=== PATIENT | male | born 1965 | race Caucasian/White ===

== ENCOUNTER 2017-07-01 09:47 | Emergency (ER) | payer OTHER ==
--- NOTE | 2017-07-01 10:05 | CPEKG ---
Heart Rate: 63 RR Interval: 952 P-R Interval: 172 QRSD Interval: 98 QT Interval: 432 QTC Interval: 443 P [place]: 47 QRS [place]: 23 T Wave [place]: 13 EKG Severity - ABNORMAL ECG - EKG Impression: SINUS RHYTHM EKG Impression: MULTIPLE ATRIAL PREMATURE COMPLEXES EKG Impression: ST ELEV, PROBABLE NORMAL EARLY REPOL PATTERN Electronically Signed By: Ira Palma 01-Jul-2017 14:52:35
[2017-07-01] MEDS ORDERED: ASPIRIN 325 MG TAB PO ONE (10:17)
[2017-07-01 10:25] LABS: PLATELET COUNT 226 10^3/uL (150-400)
--- NOTE | 2017-07-01 10:34 | EDPHY ---
H & P Time Seen by Provider: 07/01/17 10:11 HPI/ROS: CHIEF COMPLAINT: Chest pain HISTORY OF PRESENT ILLNESS: 52-year-old male presents with chest pain. Onset of chest pain 3 days ago while he was standing in the kitchen. The chest pain is described as a pressure sensation, rated 2-3/10. The pressure sensation was persistent until yesterday, and was slightly alleviated with burping. The pain did not change with exertion. He did his usual activities over the weekend. This morning, he awoke in the pressure sensation was gone. However he has a left-sided chest pain, that comes and goes and is quite mild. He had a heart scan a couple of years ago and had a positive calcium scoring. He takes Crestor for hyperlipidemia. Family history of heart disease in 50's. REVIEW OF SYSTEMS: Constitutional: No fever, no chills Eyes: No visual changes ENT: No sore throat Respiratory: No cough, no shortness of breath Gastrointestinal: No nausea, no vomiting, no abdominal pain Genitourinary: no dysuria Musculoskeletal: No leg pain or swelling Skin: No rash Neurological: No headache, no weakness Psychiatric: No depression Past Medical/Surgical History: Hyperlipidemia Social History: No recent alcohol Smoking Status: Never smoked Physical Exam: General Appearance: Alert, pleasant Eyes: Pupils equal and round, no conjunctival pallor or injection ENT, Mouth: Mucous membranes moist Neck: Normal inspection Respiratory: Lungs are clear to auscultation Cardiovascular: Regular rate and rhythm Gastrointestinal: Abdomen is soft and nontender Neurological: A&O, nonfocal, normal gait Skin: Warm and dry, no rash Extremities: Nontender, no pedal edema Psychiatric: Mood and affect normal Constitutional: Initial Vital Signs Temperature (C) 36.6 C 07/01/17 09:49 Heart Rate 73 07/01/17 09:49 Respiratory Rate 18 07/01/17 09:49 Blood Pressure 133/71 H 07/01/17 09:49 O2 Sat (%) 99 07/01/17 09:49 O2 Delivery Mode Room Air O2 (L/minute) 2 Allergies/Adverse Reactions: No Known Allergies Allergy (Unverified 07/01/17 09:48) Home Medications: Medication Instructions Recorded Aspirin 81mg (*) 07/01/17 Crestor 07/01/17 Medical Decision Making - Diagnostics EKG Interpretation: EKG interpreted by me reveals normal sinus rhythm, rate 63, PACs, prominent T- waves in V2 and V3. No old EKG for comparison. Imaging Results: Imaging Impressions Chest X-Ray 07/01/17 10:17 Impression: Nothing acute radiographically. ED Course/Re-evaluation: This patient presents with atypical and prolonged chest pain (72 hrs of persistent cp). After careful consideration and evaluation, I find no evidence of acute coronary syndrome. The patient has risk factors for coronary disease, an unremarkable EKG and normal troponin. He will certainly need to follow up with Cardiology, but I feel that he is safe to do this promptly as an outpatient. He will call this afternoon to make an appointment. I feel that I can safely exclude pulmonary embolism, with normal vital signs, normal oxygen saturation and no risk factors for pulmonary embolism. In addition there is no evidence of pneumothorax, pneumonia, aortic dissection. I have encouraged him to return for recurrent chest pain or any concerns. Differential Diagnosis: Differential diagnosis includes though it is not limited to pneumonia, pneumothorax, pulmonary embolism, aortic dissection, pericarditis, acute coronary syndrome. - Data Points Laboratory Results: Laboratory Results 07/01/17 10:13 07/01/17 10:13 07/01/17 07/01/17 10:13 10:13 WBC 6.02 10^3/uL 10^3/uL (3.80-9.50) RBC 4.96 10^6/uL 10^6/uL (4.40-6.38) Hgb 16.5 g/dL g/dL (13.7-17.5) Hct 46.6 % % (40.0-51.0) MCV 94.0 fL fL (81.5-99.8) MCH 33.3 pg pg (27.9-34.1) MCHC 35.4 g/dL g/dL (32.4-36.7) RDW 11.9 % % (11.5-15.2) Plt Count 226 10^3/uL 10^3/uL (150-400) MPV 10.1 fL fL (8.7-11.7) Neut % (Auto) 65.1 % % (39.3-74.2) Lymph % (Auto) 26.2 % % (15.0-45.0) [place] % (Auto) 5.8 % % (4.5-13.0) Eos % (Auto) 1.8 % % (0.6-7.6) Baso % (Auto) 0.8 % % (0.3-1.7) Nucleat RBC Rel Count 0.0 % % (0.0-0.2) Absolute Neuts (auto) 3.91 10^3/uL 10^3/uL (1.70-6.50) Absolute Lymphs (auto) 1.58 10^3/uL 10^3/uL (1.00-3.00) Absolute Monos (auto) 0.35 10^3/uL 10^3/uL (0.30-0.80) Absolute Eos (auto) 0.11 10^3/uL 10^3/uL (0.03-0.40) Absolute Basos (auto) 0.05 10^3/uL 10^3/uL (0.02-0.10) Absolute Nucleated RBC 0.00 10^3/uL 10^3/uL (0-0.01) Immature Gran % 0.3 % % (0.0-1.1) Immature Gran # 0.02 10^3/uL 10^3/uL (0.00-0.10) Sodium 145 mEq/L H mEq/L (134-144) Potassium 4.4 mEq/L mEq/L (3.5-5.2) Chloride 101 mEq/L mEq/L (97-110) Carbon Dioxide 30 mEq/l mEq/l (22-31) Anion Gap 14 mEq/L mEq/L (8-16) BUN 23 mg/dL mg/dL (7-23) Creatinine 0.9 mg/dL mg/dL (0.7-1.3) Estimated GFR > 60 Glucose 72 mg/dL mg/dL (70-100) Calcium 10.1 mg/dL mg/dL (8.5-10.4) Troponin I < 0.012 ng/mL ng/mL (0.000-0.034) Medications Given: Discontinued Medications Aspirin (Aspirin) 162 mg PO EDNOW ONE Stop: 07/01/17 10:18 Last Admin: 07/01/17 10:28 Dose: 162 mg Departure - Departure Disposition: Home, Routine, Self-Care Clinical Impression: Chest pain Qualifiers: Chest pain type: precordial pain Qualified Code(s): R07.2 - Precordial pain Condition: Good Instructions: Chest Pain (ED) Additional Instructions: Return for recurrent symptoms, any concerns. Continue taking aspirin daily. Referrals: Elle Grace MD [Primary Care Provider] - As per Instructions Reid Ayers MD [Medical Doctor] - 2-3 days, call for appt.
[2017-07-01 11:51] VITALS: BP 101/66; PULSE 51; RESP 21; TEMP 98.6; O2SAT 98
== END 2017-07-01 11:50 | disposition home or self-care (01) ==
DX: R07.2 Precordial pain (principal); Z79.82 Long term (current) use of aspirin